=== PATIENT | female | born 1960 | race Caucasian/White ===

== ENCOUNTER 2017-08-23 12:37 | Emergency (ER) | payer OTHER | END 2017-08-23 14:56 | disposition home or self-care (01) | LOC: FER 12:37 | CPT/HCPCS: 36415; 80048; 85025; 93005; 99282-25 ==

== ENCOUNTER 2019-05-19 10:10 | Emergency (ER) | payer OTHER ==
--- NOTE | 2019-05-19 10:12 | PDOC ---
History of Present Illness - General Chief Complaint: Pain, Acute Stated Complaint: LEG PAIN X 2 YEARS Time Seen by Provider: 05/19/19 10:12 History Source: Patient Exam Limitations: No Limitations - History of Present Illness Initial Comments: Celia Garces is a 59 yo F w a hx of eczema, depression and anxiety who presents to the [place] ED with 2 years of slowly but progressively worsening bilateral lower leg pain. She states the pain is worse when she stands on her legs and is relieved with rest and lying down. Putting any external pressure on her legs exacerbates the pain. The patient states she has been smoking 1PPD for greater than 40 years time. She has been seen in the past for the same complaints and been diagnosed with MSK leg pain. Her pain usually improves when she takes advil. She took advil two days ago with symptom relief. She has been referred to a vascular doctor in the past for this pain which was originally diagnosed as MSK pain. The patient denies recent travel/surgeries/immobility, lower extremity edema, hormone use, personal or family history of thrombosis, personal or family hx of cancer. Denies fevers, chills, infections. Denies chest pain, SOB, or difficulty breathing. Vascular: Dr. Abraham PCP: Angelo Rivero Social Hx: Smokes 1 PPD. Denies alcohol or illicit drug usage Allergies: NKA, NKDA PSH: None reported Past History - Past Medical History Allergies/Adverse Reactions: Allergies Allergy/AdvReac Type Severity Reaction Status Date / Time No Known Allergies Allergy Verified 05/19/19 10:11 Home Medications: Ambulatory Orders Quetiapine Fumarate [Seroquel] 300 mg PO HS 09/11/12 Haloperidol [Haldol -] 5 mg PO ASDIR 01/03/14 COPD: No Psychiatric Problems: Yes (DEPRESSION/ANXIETY) - Psycho Social/Smoking Cessation Hx Smoking Status: Yes Smoking History: Never smoked Have you smoked in the past 12 months: No Number of Cigarettes Smoked Daily: 10 If you are a former smoker, when did you quit?: A FEW YEARS AGO 'Breaking Loose' booklet given: 12/26/13 Hx Alcohol Use: No Drug/Substance Use Hx: No Substance Use Type: None Review of Systems - Review of Systems Able to Perform ROS?: Yes Comments:: CONSTITUTIONAL: Absent: fever, chills, diaphoresis, generalized weakness, malaise, loss of appetite HEENT: Absent: rhinorrhea, nasal congestion, throat pain, throat swelling, difficulty swallowing, mouth swelling, ear pain, eye pain, visual Changes CARDIOVASCULAR: Absent: chest pain, syncope, palpitations, irregular heart rate, lightheadedness , peripheral edema RESPIRATORY: Absent: cough, shortness of breath, dyspnea with exertion, orthopnea, wheezing, stridor, hemoptysis GASTROINTESTINAL: Absent: abdominal pain, abdominal distension, nausea, vomiting, diarrhea, constipation, melena, hematochezia GENITOURINARY: Absent: dysuria, frequency, urgency, hesitancy, hematuria, flank pain, genital pain MUSCULOSKELETAL: Present: Arthralgia Absent: myalgia, joint swelling SKIN: Present: Rash Absent: itching, pallor HEMATOLOGIC/IMMUNOLOGIC: Absent: easy bleeding, easy bruising, lymphadenopathy, frequent infections ENDOCRINE: Absent: unexplained weight gain, unexplained weight loss, heat intolerance, cold intolerance NEUROLOGIC: Absent: headache, focal weakness or paresthesias, dizziness, unsteady gait, seizure, mental status changes, bladder or bowel incontinence PSYCHIATRIC: Present: anxiety, depression Absent: suicidal or homicidal ideation, hallucinations. *Physical Exam - Physical Exam GENERAL: Skinny, not great personal hygiene, smells of smoke. Awake and alert. No acute distress. HEENT: Oropharynx not well kept. Normocephalic, atraumatic. PERRLA, EOMI. No conjunctival pallor. Sclera are non-icteric. NECK: Supple. Full ROM. No JVD. CARDIOVASCULAR: Regular rate and rhythm. No murmurs, rubs, or gallops. Distal pulses are 2+ and symmetric. PULMONARY: No evidence of respiratory distress. Lungs clear to auscultation bilaterally. No wheezing, rales or rhonchi. ABDOMINAL: Soft. Non-tender. Non-distended. No rebound or guarding. No organomegaly. Normoactive bowel sounds. MUSCULOSKELETAL Normal range of motion at all joints. No bony deformities or tenderness. No CVA tenderness. EXTREMITIES: the bilateral lower legs have 2+ DP and PT pulses. There are b/l excoriations which appear to be eczemetous lesions in nature. The lesions are crusted. There is no lower leg edema, erythema, or swelling. The patient endorses mild TTP upon external pressure of the lower legs below the knees. No cyanosis. No clubbing. No edema. SKIN: Warm and dry. Normal capillary refill. No jaundice. NEUROLOGICAL: Alert, awake, appropriate. No deficits to light touch in face, upper extremities and lower extremities. No motor deficits in the in face, upper extremities and lower extremities. Normal speech. Gait is normal without ataxia. PSYCHIATRIC: Cooperative. Good eye contact. ED Treatment Course - RADIOLOGY Radiograph Interpretation: Duplex DVT: EXAM#: TYPE/EXAM: RESULT: [id number] US/DUPLEX VASCUL US-2LEGS BILATERAL LOWER EXTREMITY VENOUS DUPLEX ULTRASOUND. HISTORY: 59-year-old female with lower extremity pain TECHNIQUE: Real-time right and left lower extremity venous duplex ultrasound with color-flow Doppler was performed from the inguinal region to the level of the mid tibia and fibula. FINDINGS: The right common femoral, deep femoral, proximal, mid and distal femoral, popliteal and posterior tibial veins as well as the greater saphenous veins at the saphenofemoral junction are evaluated. No intraluminal blood clots were seen. Total compressibility with blood flow and respiratory phasicity was observed throughout the above evaluated veins. No Rios's cyst was seen. IMPRESSION: No sonographic evidence of right or left lower extremity DVT. Medical Decision Making - Medical Decision Making Celia Garces is a 59 yo F w a hx of eczema, depression and anxiety who presents to the [place] ED with 2 years of slowly but progressively worsening bilateral lower leg pain. She states the pain is worse when she stands on her legs and is relieved with rest and lying down. Putting any external pressure on her legs exacerbates the pain. The patient states she has been smoking 1PPD for greater than 40 years time. She has been seen in the past for the same complaints and been diagnosed with MSK leg pain. Her pain usually improves when she takes advil. She took advil two days ago with symptom relief. She has been referred to a vascular doctor in the past for this pain which was originally diagnosed as MSK pain. The patient denies recent travel/surgeries/immobility, lower extremity edema, hormone use, personal or family history of thrombosis, personal or family hx of cancer. Denies fevers, chills, infections. Denies chest pain, SOB, or difficulty breathing. Vital Signs Temp Pulse Resp BP Pulse Ox 98.4 F 87 16 130/78 100 05/19/19 10:11 05/19/19 10:11 05/19/19 10:11 05/19/19 10:11 05/19/19 10:11 DDx IBNLT: DVT/PE, PVD, peripheral vasculitis - buegers/thromboangiitis obliterans, smoking related vascular disease, eczema Plan: Duplex DVT, analgesia, re-assess, outpatient vascular referral Duplex: No sonographic evidence of right or left lower extremity DVT. Re-assessment: Patient experienced moderate relief after NSAID Disposition: Home with vascular FU Discharge - Discharge Information Problems reviewed: Yes Clinical Impression/Diagnosis: Lower extremity pain, bilateral Condition: Stable Disposition: HOME - Admission No - Follow up/Referral Referrals: Anshu Abraham DO [Staff Physician] - - Patient Discharge Instructions Patient Printed Discharge Instructions: DI for Leg Pain, Buerger's Disease, How to Quit Smoking, Smoking Cessation Associated with Decreases Risk of Complications After Romulo, Reasons to Quit Smoking, All Forms of Smoking Are Bad for You, Serious Ways to Stop Smoking Additional Instructions: You came into the ER with lower leg pain which has been occurring over the past 2 years. We believe this pain might be related to your smoking habits. It is very important for you to try and quit smoking. Please read all the attached handouts for further information and help on how to quit smoking. Please schedule a follow up appointment with the vascular doctor we are referring you to to further evaluate the cause of your leg pain in the next 7 to 10 days. It is possible this is an inflammation of your lower blood vessels - a disease called buergers - please read attached handout for further explanation. Come back to the ER immediately if your pain worsens, you get a fever, have chest pain or shortness of breath, or have any other new or worsening concerns. Thank you for coming to the [place] ER. We hope you feel better soon! Print Language: OCCITAN - Post Discharge Activity
[2019-05-19 10:14] VITALS: BP 130/78; PULSE 87; TEMP 98.4; BMI 21.1
[2019-05-19] MEDS ORDERED: IBUPROFEN 400 MG TABLET (FP) PO ONE ×2 (10:21→10:26)
--- NOTE | 2019-05-19 10:23 | PDOC ---
Attending Attestation - Resident Resident Name: Reynaldo Ken - ED Attending Attestation I have performed the following: I have examined & evaluated the patient, The case was reviewed & discussed with the resident, I agree w/resident's findings & plan, Exceptions are as noted - HPI HPI: 05/19/19 10:21 59y F hx of anxiety, depression, +smoking hx, presents with 2 years of b/l lower leg pain that has been worsening. Pt was seen in the ED for the past and referred to vascular and though to to be MSK. Pt returns to the ED as the pain is worse especially when she is standing,walking. The patient States she usually has the pain immediately upon walking and after a while. No pain at rest. Pain is improved by NSAIDs. Denies any cp, sob, quinones, hemoptysis, Recent falls or injuries, abdominal pain, back pain, numbness, tingling, weakness. n orecent travel, recent sick contacts, hx of PE/dvt, hx of malignancy - Physicial Exam PE: 05/19/19 11:53 exam: General: no acute distress Extremity: b/l LE - no focal swelling/edema, no focal bony tenderness, neg homans sign, +dry skin, +excoriations distal LE/ankle region without obvious signs of infection. No erythema/induration. - Medical Decision Making 05/19/19 11:53 likely msk by history, does not sound like PAD DVT US negative will dc with supportive care and PMD fu return precautions were dsicussed
== END 2019-05-19 11:54 | disposition home or self-care (01) ==
LOC: FER 10:10
DX: M79.662 Pain in left lower leg (principal); M79.661 Pain in right lower leg; L30.9 Dermatitis, unspecified; F41.8 Other specified anxiety disorders
CPT/HCPCS: 93970-TC; 99282-25

== ENCOUNTER 2022-03-07 10:31 | Emergency (ER) | payer OTHER ==
[2022-03-07 11:50] LABS: HEMATOCRIT 38.4 % (32.4-45.2); MCH 27.9 pg (25.7-33.7); MCHC 33.9 g/dl (32.0-36.0); MEAN CELL VOLUME 82.5 fl (80-96); MEAN PLT VOLUME 9.2 fl (7.5-11.1); PLATELET COUNT 169.8 10^3/uL (134-434); RBC 4.66 10^6/uL (3.60-5.2); RDW 16.1 % (11.6-15.6); WHITE BLOOD COUNT 5.9 10^3/uL (4.0-10.8)
[2022-03-07 12:06] LABS: ALBUMIN 3.8 g/dl (3.4-5.0); BILIRUBIN,TOTAL 0.6 mg/dl (0.2-1); CALCIUM 8.9 mg/dl (8.5-10); CREATININE 0.7 mg/dl (0.55-1.3); TOT PROT 6.5 g/dl (6.4-8.2)
[2022-03-07 12:18] VITALS: BP 150/73; PULSE 65; RESP 18; TEMP 98.6; BMI 23.6
[2022-03-07 13:17] LABS: PLATELET ESTIMATE ADEQUATE
== END 2022-03-07 12:57 | disposition home or self-care (01) ==
LOC: FER 10:31
DX: G62.9 Polyneuropathy, unspecified (principal)
CPT/HCPCS: 36415; 80053; 85025; 99283-25